=== PATIENT | female | born 1960 | race Caucasian/White ===

== ENCOUNTER 2021-02-12 18:36 | Emergency (ER) | payer BC ==
[~2021-02-12 18:36] MED LIST: AZITHROMYCIN500 MG PO; NORCO 5-325 TA1 EACH PO; NORFLEX 100 MG100 MG PO; TYLENOL 500 MG500 MG PO
[2021-02-12 19:37] LABS: HEMOGLOBIN 15.2 gm/dl (12.3-15.3); RED BLOOD COUNT 5.02 M/UL (4.00-5.10)
[2021-02-12 20:10] LABS: BUN/CREATININE RATIO 10 (0-10)
[2021-02-12] MEDS ORDERED: ZOFRAN ODT 4 MG4 MG SL (23:06)
== END 2021-02-12 23:18 | disposition home or self-care (01) ==
LOC: ER1 18:36
PROVIDERS: Physician Assistant
DX: R10.11 Right upper quadrant pain (principal); R10.12 Left upper quadrant pain; R10.31 Right lower quadrant pain; R10.32 Left lower quadrant pain; R11.2 Nausea with vomiting, unspecified; R19.7 Diarrhea, unspecified; Z79.899 Other long term (current) drug therapy
CPT/HCPCS: 80053; 81001; 82150; 83690; 85025; 96374; 96375; 96376; 99284; J2270; J2405; J7030; Q9967